=== PATIENT | male | born 2005 | race Two or more races ===

== ENCOUNTER 2025-07-18 17:41 | Emergency (ER) | payer MEDICAID, OTHER ==
[~2025-07-18] VITALS: Ht 170.2 cm; Wt 90.0 kg
[2025-07-18 18:20] LABS: Hematocrit 47.4 % (41.0-53.0); Hemoglobin 16.5 g/dL (13.5-17.5); Mean Corpuscular Hemoglobin 28.1 pg (28.0-32.0); Mean Corpuscular Volume 80.6 fL (80.0-100.0); Nucleated Red Blood Cells % 0.2 %
[2025-07-18 18:26] LABS: Chloride 105 mmol/L (98-107); Potassium 3.7 mmol/L (3.5-5.1); Sodium 142 mmol/L (136-145)
[2025-07-18 18:27] LABS: Anion Gap 12 (5-15); Calcium 9.7 mg/dL (8.7-10.4); Carbon Dioxide 25 mmol/L (20-31)
[2025-07-18 18:32] LABS: BUN/Creatinine Ratio 5.7 (10.0-20.0); Glucose 104 mg/dL (74-106)
[2025-07-18 18:33] LABS: Blood Urea Nitrogen 6 mg/dL (9-23)
[2025-07-18 19:19] LABS: Urine Budding Yeast OCCASIONAL /hpf (None Seen); Urine Protein, UAD TRACE (Negative)
--- NOTE | 2025-07-18 19:24 | ED.PDOC ---
GI ASSESSMENT HPI Comments 20-year-old male with no significant past medical history presenting complaining of left lower quadrant pain since 11:00 a.m., waxing and waning, now moderate to severe, associated with nausea, vomiting and diarrhea. Patient denies fever, dysuria or hematuria. He does note his urine is dark color. Chief Complaint: Abdominal Pain Time Seen by MD: 19:12 Reviewed Notes: Nurses Notes, Occupational Ther Notes, Medications, Allergies Allergies: Coded Allergies: NO KNOWN ALLERGIES (Unverified , 07/18/25) Information Source: Patient, Emergency Med Personnel Mode of Arrival: EMS Timing: Hours Duration: Since onset Prehospital treatment: None Severity: Moderate Pain Location: LLQ Associated sign and symptoms: Nausea, Vomiting, Diarrhea, Abdominal Pain Past Medical History PAST MEDICAL HISTORY: Denies Surgical History: Denies all surgeries Family History Family History: Reviewed,noncontributory to illness, No family hx of Cancer, No family hx of DM, No family hx of Heart nat[place], No family hx of HTN, No family hx ofKidney [place], No family hx of Liver [place], No family hx of Lung nat[place], No family hx of Stroke Social History Smoker: Non-Smoker Alcohol: Denies ETOH Use Drugs: Denies Drug Use Lives In: Home Constitutional: denies: chills, diaphoresis, fatigue, fever, malaise, sweats, weakness, others EENTM: denies: blurred vision, double vision, ear bleeding, ear discharge, ear drainage, ear pain, ear ringing, eye pain, eye redness, hearing loss, mouth pain, mouth swelling, nasal discharge, nose bleeding, nose congestion, nose pain, photophobia, tearing, throat pain, throat swelling, voice changes, others Respiratory: denies: cough, hemoptysis, orthopnea, SOB at rest, shortness of breath, SOB with excertion, stridor, wheezing, others Cardiovascular: denies: chest pain, dizzy spells, diaphoresis, Dyspnea on exertion, edema, irregular heart beat, left arm pain, lightheadedness, palpitations, PND, syncope, others Gastrointestinal: reports: abdominal pain, diarrhea, nausea, vomiting; denies: abdomen distended, blood streaked bowels, constipated, dysphagia, difficulty swallowing, hematemesis, melena, poor appetite, poor fluid intake, rectal bleeding, rectal pain, others Genitourinary: denies: burning, dysuria, flank pain, frequency, hematuria, incontinence, penile discharge, penile sore, pain, testicle pain, testicle swelling, urgency, others Neurological: denies: dizziness, fainting, headache, left sided numbness, left sided weakness, numbness, paresthesia, pre-existing deficit, right sided numbness, right sided weakness, seizure, speech problems, tingling, tremors, weakness, others Musculoskeletal: denies: back pain, gout, joint pain, joint swelling, muscle pain, muscle stiffness, neck pain, others Integumetry: denies: bruises, change in color, change in hair/nails, dryness, laceration, lesions, lumps, rash, wounds, others Allergic/Immunocompromised: denies: Difficulty Healing, Frequent Infections, Hives, Itching, others Hematologic/Lymphatic: denies: anemia, blood clots, easy bleeding, easy bruising, swollen glands, others Endocrine: denies: excessive hunger, excessive sweating, excessive thirst, excessive urination, flushing, intolerance to cold, intolerance to heat, unexplained weight gain, unexplained weight loss, others Psychiatric: denies: anxiety, bipolar disorder, depression, hopeless, panic disorder, schizophrenia, sleepless, suicidal, others All Other Systems: Reviewed and Negative Physical Exam General Appearance: Mild Distress HEENT: Other (Pupils and face symmetric. Moist mucous membranes.) Neck: Full Range of Motion, Normal Inspection Respiratory: Lungs Clear, No Accessory Muscle Use, No Respiratory Distress, Normal Breath Sounds Cardiovascular: No Edema, No JVD, Tachycardia Breast Exam: Deferred Gastrointestinal: LLQ, Soft, Tenderness Genitalia: Deferred Pelvic: Deferred Rectal: Deferred Extremities: Normal inspection, Normal range of motion, Non-tender, No pedal edema Neurologic: Alert (Oriented x4), Normal Affect, Normal Mood, Other (Ambulatory) Cerebellar Function: NOT DONE Reflexes: NOT DONE Skin: Dry, Normal Color, Warm Lymphatic: NOT DONE Was a procedure done? Was a procedure done?: No GI differential Dx Differential Diagnosis: Diverticular disease, Gastritis/PUD, Gastroenteritis, Inflammatory BD, UTI, Urolithiasis, Dehydration, Electrolyte Imbalance, Food Poisoning, Bacterial, Viral, Hypovolemia, Renal Failure, Kidney Stone X-Ray, Labs, Meds, VS Vital Signs Date Time Temp Pulse Resp B/P (MAP) Pulse Ox O2 Delivery O2 Flow Rate FiO2 07/18/25 21:00 107 17 146/111 07/18/25 20:49 98.3 101 22 146/111 (123) 97 98.3 07/18/25 17:44 98.3 110 16 158/96 98 98.3 Lab Test 07/18/25 18:06 07/18/25 18:00 Range/Units White Blood Count 8.9 4.4-10.8 10^3/uL Red Blood Count 5.88 4.5-5.90 10^6/uL Hemoglobin 16.5 13.5-17.5 g/dL Hematocrit 47.4 41.0-53.0 % Mean Corpuscular Volume 80.6 80.0-100.0 fL Mean Corpuscular Hemoglobin 28.1 28.0-32.0 pg Mean Corpuscular Hemoglobin Concent 34.9 32.0-36.0 g/dL Red Cell Distribution Width 14.2 11.8-14.3 % Platelet Count 227 140-450 10^3/uL Mean Platelet Volume 8.1 6.9-10.8 fL Neutrophils (%) (Auto) 56.5 37.0-80.0 % Lymphocytes (%) (Auto) 33.7 10.0-50.0 % Monocytes (%) (Auto) 7.5 0.0-12.0 % Eosinophils (%) (Auto) 1.4 0.0-7.0 % Basophils (%) (Auto) 0.9 0.0-2.0 % Neutrophils # (Auto) 5.0 1.6-8.6 10 ^3/uL Lymphocytes # (Auto) 3.0 0.4-5.4 10 ^3/uL Monocytes # (Auto) 0.7 0-1.3 10 ^3/uL Eosinophils # (Auto) 0.1 0-0.8 10 ^3/uL Basophils # (Auto) 0.1 0-0.2 10 ^3/uL Nucleated Red Blood Cells 0.2 % Sodium Level 142 136-145 mmol/L Potassium Level 3.7 3.5-5.1 mmol/L Chloride Level 105 98-107 mmol/L Carbon Dioxide Level 25 20-31 mmol/L Anion Gap 12 5-15 Blood Urea Nitrogen 6 L 9-23 mg/dL Creatinine 1.06 0.700-1.30 mg/dL Glomerular Filtration Rate Calc 103 >90 mL/min BUN/Creatinine Ratio 5.7 L 10.0-20.0 Serum Glucose 104 74-106 mg/dL Calcium Level 9.7 8.7-10.4 mg/dL Urine Color Light-yellow Yellow Urine Clarity Clear Clear Urine pH 5.5 5.0-9.0 Urine Specific [place] 1.024 1.001-1.035 Urine Protein Trace H Negative Urine Ketones Negative Negative Urine Blood 3+ H Negative /uL Urine Nitrite Negative Negative Urine Bilirubin Negative Negative Urine Urobilinogen Normal Negative mg/dL Urine Leukocyte Esterase Negative Negative /uL Urine RBC 520 0 - 3 /hpf Urine Microscopic WBC 2 0-3 /HPF Urine Squamous Epithelial Cells Few <5 /hpf Urine Bacteria None seen None Seen /hpf Urine Yeast (Budding) Occasional None Seen /hpf Urine Glucose Normal Normal mg/dL Current Medications Medications (Trade) Dose Ordered Sig/Mena Route Start Time Stop Time Status Last Admin Sodium Chloride 1,000 ml @ 1,000 mls/hr Q1H ONCE IV 07/18/25 19:15 07/18/25 20:14 DC 07/18/25 21:00 Morphine Sulfate 4 mg ONCE ONCE IV 07/18/25 19:15 07/18/25 19:16 DC 07/18/25 21:00 Ondansetron HCl (Zofran) 4 mg ONCE ONCE IV 07/18/25 19:15 07/18/25 19:16 DC 07/18/25 21:01 Pantoprazole Sodium (Protonix) 40 mg ONCE ONCE IV 07/18/25 19:15 07/18/25 19:16 DC 07/18/25 21:01 [place] [id number] Ph: [phone] DIAGNOSTIC IMAGING Diagnostic Imaging Report : [id number] Signed PATIENT: KWABENA COLLINST: [id number] UNIT: [id number] : 2005 LOC: ER ROOM / BED: / AGE / SEX: 20 / M ADM STATUS: REG ER SERVICE [id number] ORDERING PHYSICIAN: MERLINE MATUTE MD PROCEDURE(s): ABPL - CT AB PEL WO CON-NO ORAL OR IV REASON: LLQ pain ORDER NUMBER(s): [id number], ACCESSION NUMBER(s): [id number] Exam: CT CT AB PEL WO CON-NO ORAL OR IV History: LLQ pain Comparison Study: None TECHNIQUE: Multidetector CT of the abdomen was performed from lung bases to pubic symphysis. Imaging was performed without IV contrast. Axial, coronal and sagittal multiplanar reformats were obtained from the axial data set by the technologist. Radiation Dose Information: CT Dose: CTDI volume is 25.4 mGy. Dose-length product is 1486.13 mGy*cm FINDINGS: Evaluation of solid organs is limited due to lack of intravenous contrast use. Findings: Lung Bases: No acute or significant lung base finding. Normal heart size. No pleural or pericardial effusion. Liver: The liver is normal in size. No focal lesions. Hepatic steatosis Gallbladder and Biliary Tree: Unremarkable Spleen: Unremarkable Pancreas: The pancreas is grossly normal in appearance. Adrenal Glands: Unremarkable Kidneys: Kidneys are grossly normal without calculi or hydronephrosis. Bladder: Grossly unremarkable for degree of distention. Bowel: The stomach is grossly normal in appearance. Small bowel and colon are normal in caliber and distribution. The appendix is not visualized; however, no secondary findings of acute appendicitis identified. Ascites: Absent Lymphadenopathy: No mesenteric, retroperitoneal or periportal lymphadenopathy. Abdominal Wall and Mesentery: 3.1 cm fat filled left inguinal hernia. Vasculature: The visualized abdominal aorta is normal in size and caliber. Evaluation of abdominal and pelvic vessels is limited due to lack of intravenous contrast. Pelvic Organs: Unremarkable Musculoskeletal: No aggressive focal bony lesions, acute fractures or dislocation. Soft tissues: Unremarkable IMPRESSION: 1. Hepatic steatosis 2. 0.1 cm fat filled left inguinal hernia. 3. Small punctate (3 mm) distal left ureteral calculus. Radiation optimization: All CT scans at this facility use at least one of these dose optimization techniques: automated exposure control mA and/or kV adjustment per patient size (includes targeted exams where dose is matched to clinical indication) or iterative reconstruction. X-Ray, Labs, Meds, VS Comment 20-year-old male with no significant past medical history complaining of left lower quadrant pain, nausea, vomiting and diarrhea Vitals remarkable for heart rate 110, BP 158/96 Exam remarkable for tachycardia and left lower quadrant tenderness to palpation Rhythm strip independently interpreted by me: Sinus tach, rate 110, no ectopy. CT abdomen and pelvis IMPRESSION: 1. Hepatic steatosis 2. 0.1 cm fat filled left inguinal hernia. 3. Small punctate (3 mm) distal left ureteral calculus. CBC and basic metabolic panel unremarkable. UA positive for trace protein, blood and RBCs Patient treated with the following in the ED: 1 L 0.9 normal saline IV bolus, morphine 4 mg IV, Zofran 4 mg IV, Protonix 40 mg IV, Toradol 30 mg IV Re-evaluation, pain has improved and vitals were stable. Patient tolerated p.o. fluids. Hospitalization was considered, however patient had rapid improvement of symptoms with treatment in the ED, and I no longer feel hospitalization is necessary. Patient now appears stable for discharge with close outpatient follow-up with his primary physician for referral to an urologist. Patient will also be referred to Dr. Karon Graham. Images Reviewed?: Images reviewed and evaluated by me Time of 1ST Reevaluation: 20:11 Reevaluation 1ST: Unchanged Patient Education/Counseling: Diagnosis, Treatment, Need For Follow Up Family Education/Counseling: No Family Present Medical Screening: No EMC Exist At This Time SEPSIS Sepsis Screen Date sepsis recognized/suspect: Jul 18, 2025 Time Sepsis recognized/suspect: 1745 Recent Procedure: No On Antibiotic Therapy: No Respiratory Rate >20: No Heart Rate >90: Yes Temp<36 C (96.8 F) or >38.3 C: No SBP <90 or MAP <65 mmHG: No New Acute Mental Status Change: No Is the patient on CPAP, BIPAP,: No SEPSIS EXCLUSION NOTE: Sepsis Exclusion Note: Patient presents with SIRS criteria, but the SIRS response is attributed to [pain ], not a suspected infection. Sepsis bundle is not initiated at this time, due to this reason. Further management will focus on the treatment of the above condition (s). Physician Orders Ct Ab Pel Wo Con-No Oral Or Iv (07/18/25 17:59) Vital Signs Date Time Temp Pulse Resp B/P (MAP) Pulse Ox O2 Delivery O2 Flow Rate FiO2 07/18/25 21:00 107 17 146/111 07/18/25 20:49 98.3 101 22 146/111 (123) 97 98.3 07/18/25 17:44 98.3 110 16 158/96 98 98.3 Laboratory Tests Test 07/18/25 18:06 White Blood Count 8.9 10^3/uL (4.4-10.8) Medications Medications Dose Ordered Sig/Mena Route Start Time Stop Time Status Last Admin Dose Admin Morphine Sulfate 4 mg ONCE ONCE IV 07/18/25 19:15 07/18/25 19:16 DC 07/18/25 21:00 Ondansetron HCl 4 mg ONCE ONCE IV 07/18/25 19:15 07/18/25 19:16 DC 07/18/25 21:01 Pantoprazole Sodium 40 mg ONCE ONCE IV 07/18/25 19:15 07/18/25 19:16 DC 07/18/25 21:01 Sodium Chloride 1,000 ml @ 1,000 mls/hr Q1H ONCE IV 07/18/25 19:15 07/18/25 20:14 DC 07/18/25 21:00 Departure 1 Departure Time of Disposition: 21:27 Impression: Primary Impression: Ureterolithiasis Additional Impression: Inguinal hernia of left side with obstruction and without gangrene Disposition: 01 HOME / SELF CARE / HOMELESS Condition: Stable Referrals: SANCHO GRAHAM MD Additional Instructions: Your blood tests were unremarkable. Your urine test showed blood in your urine, which is likely due to passing a kidney stone. Your CT scan showed that you are passing a kidney stone on the left side. It also showed an incidental finding of an inguinal hernia on the left side. I have enclosed the report below. I have prescribed medication for your symptoms. Follow-up with your primary d octor in 1-2 days for referral to an urologist for further evaluation of your kidney stone. Alternatively, follow-up directly with Dr. Graham (urology). [facility] [id number] [place] [address] Ph: [phone] DIAGNOSTIC IMAGING Diagnostic Imaging Report : [id number] Signed PATIENT: AGUILA COLLINS ACCT: [id number] UNIT: [id number] : 2005 LOC: ER ROOM / BED: / AGE / SEX: 20 / M ADM STATUS: REG ER SERVICE [id number] ORDERING PHYSICIAN: MERLINE MATUTE MD PROCEDURE(s): ABPL - CT AB PEL WO CON-NO ORAL OR IV REASON: LLQ pain ORDER NUMBER(s): [id number], ACCESSION NUMBER(s): [id number] Exam: CT CT AB PEL WO CON-NO ORAL OR IV History: LLQ pain Comparison Study: None TECHNIQUE: Multidetector CT of the abdomen was performed from lung bases to pubic symphysis. Imaging was performed without IV contrast. Axial, coronal and sagittal multiplanar reformats were obtained from the axial data set by the technologist. Radiation Dose Information: CT Dose: CTDI volume is 25.4 mGy. Dose-length product is 1486.13 mGy*cm FINDINGS: Evaluation of solid organs is limited due to lack of intravenous contrast use. Findings: Lung Bases: No acute or significant lung base finding. Normal heart size. No pleural or pericardial effusion. Liver: The liver is normal in size. No focal lesions. Hepatic steatosis Gallbladder and Biliary Tree: Unremarkable Spleen: Unremarkable Pancreas: The pancreas is grossly normal in appearance. Adrenal Glands: Unremarkable Kidneys: Kidneys are grossly normal without calculi or hydronephrosis. Bladder: Grossly unremarkable for degree of distention. Bowel: The stomach is grossly normal in appearance. Small bowel and colon are normal in caliber and distribution. The appendix is not visualized; however, no secondary findings of acute appendicitis identified. Ascites: Absent Lymphadenopathy: No mesenteric, retroperitoneal or periportal lymphadenopathy. Abdominal Wall and Mesentery: 3.1 cm fat filled left inguinal hernia. Vasculature: The visualized abdominal aorta is normal in size and caliber. Evaluation of abdominal and pelvic vessels is limited due to lack of intravenous contrast. Pelvic Organs: Unremarkable Musculoskeletal: No aggressive focal bony lesions, acute fractures or dislocation. Soft tissues: Unremarkable IMPRESSION: 1. Hepatic steatosis 2. 0.1 cm fat filled left inguinal hernia. 3. Small punctate (3 mm) distal left ureteral calculus. Radiation optimization: All CT scans at this facility use at least one of these dose optimization techniques: automated exposure control mA and/or kV adjustment per patient size (includes targeted exams where dose is matched to clinical indication) or iterative reconstruction. e-Prescriptions Ondansetron Odt 4MG Tab (ZOFRAN PO) 4 Mg Tb 4 MG PO TID PRN, #20 TAB Prn nausea/vomiting ODT TAB-DISSOLVE IN MOUTH, THEN SWALLOW Prov: MERLINE MATUTE MD 07/18/25 Tamsulosin Hcl (Flomax) 0.4 Mg Cap 1 CAP PO DAILY, #20 CAP 11 Refills One p.o. daily 30 minutes after same meal. Take until pain resolves. Prov: MERLINE MATUTE MD 07/18/25 Hydrocodone-Acetaminophen (Hydrocodone Bitartrate/AC 5-325 mg) 1 Tab Tab 1-2 TAB PO Q6HP PRN, #20 TAB Prn breakthrough pain Prov: MERLINE MATUTE MD 07/18/25 Ibuprofen Micronized (Ibuprofen) 800 Mg Tab 800 MG PO Q8HP PRN, #30 TAB Prn pain. Take with food. Prov: MERLINE MATUTE MD 07/18/25 Discharged With: Relative Critical Care Note Critical Care Time?: No Stability Stability form required: No Heart Score Heart Score: Heart Score Response (Comments) Value History N/A 0 EKG N/A 0 Age N/A 0 Risk Factors N/A 0 Troponin N/A 0 Total 0 I personally scribed for MERLINE MATUTE MD ([email or web address]) on 07/18/25 at 19:24. Electronically submitted by Abbey Weber ([facility]). MERLINE MATUTE MD Jul 18, 2025 19:24
--- NOTE | 2025-07-18 20:09 | DVH ---
Exam: CT CT AB PEL WO CON-NO ORAL OR IV History: LLQ pain Comparison Study: None TECHNIQUE: Multidetector CT of the abdomen was performed from lung bases to pubic symphysis. Imaging was performed without IV contrast. Axial, coronal and sagittal multiplanar reformats were obtained fr om the axial data set by the technologist. Radiation Dose Information: CT Dose: CTDI volume is 25.4 mGy. Dose-length product is 1486.13 mGy*cm FINDINGS: Evaluation of solid organs is limited due to lack of intravenous contrast use. Findings: Lung Bases: No acute or significant lung base finding. Normal heart size. No pleural or pericardial effusion. Liver: The liver is normal in size. No focal lesions. Hepatic steatosis Gallbladder and Biliary Tree: Unremarkable Spleen: Unremarkable Pancreas: The pancreas is grossly normal in appearance. Adrenal Glands: Unremarkable Kidneys: Kidneys are grossly normal without calculi or hydronephrosis. Bladder: Grossly unremarkable for degree of distention. Bowel: The stomach is grossly normal in appearance. Small bowel and colon are normal in caliber and d istribution. The appendix is not visualized; however, no secondary findings of acute appendicitis id entified. Ascites: Absent Lymphadenopathy: No mesenteric, retroperitoneal or periportal lymphadenopathy. Abdominal Wall and Mesentery: 3.1 cm fat filled left inguinal hernia. Vasculature: The visualized abdominal aorta is normal in size and caliber. Evaluation of abdominal a nd pelvic vessels is limited due to lack of intravenous contrast. Pelvic Organs: Unremarkable Musculoskeletal: No aggressive focal bony lesions, acute fractures or dislocation. Soft tissues: Unremarkable IMPRESSION: 1. Hepatic steatosis 2. 0.1 cm fat filled left inguinal hernia. 3. Small punctate (3 mm) distal left ureteral calculus. Radiation optimization: All CT scans at this facility use at least one of these dose optimization nathen hniques: automated exposure control mA and/or kV adjustment per patient size (includes targeted exam s where dose is matched to clinical indication) or iterative reconstruction.
[2025-07-18 20:49] VITALS: TEMP 98.3; O2SAT 97
[2025-07-18 21:00] VITALS: PULSE 107; RESP 17
[2025-07-18] MEDS: SODIUM CHLORIDE 0.9% 1,000 ML IV ONE (21:00)
[2025-07-18] MEDS: MORPHINE SULFATE 4 MG/ML SYR/VIAL IV ONE (21:00)
[2025-07-18] MEDS: ONDANSETRON HCL 4 MG/2 ML VIAL IV ONE (21:01)
[2025-07-18] MEDS: PANTOPRAZOLE 40 MG/10 ML VIAL INJ IV ONE (21:01)
[2025-07-18] MEDS ORDERED: HYDR-4902 PO (21:33)
[2025-07-18] MEDS ORDERED: IBUP-1455 PO (21:33)
[2025-07-18] MEDS ORDERED: TAMS-35 PO (21:33)
[2025-07-18] MEDS ORDERED: ZOFR4T PO (21:33)
[2025-07-18] MEDS: KETOROLAC TROMETH 30 MG/ML 1ML VIAL IV ONE (23:12)
[2025-07-18 23:22] VITALS: BP 148/83
== END 2025-07-18 23:12 | disposition home or self-care (01) ==
LOC: ER 17:41 → EDBD 17:41 → ER 23:12
DX: N20.1 Calculus of ureter (principal); K40.30 Unilateral inguinal hernia, with obstruction, without gangrene, not specified as recurrent
CPT/HCPCS: 36415; 74176; 80048; 81001; 85025; 96361; 96374; 96375; 99285; J1885; J2270; J2405; J2470; J7030